=== PATIENT | male | born 1990 | race Caucasian/White ===

== ENCOUNTER 2017-03-29 14:51 | Emergency (ER) | payer SELFPAY ==
[~2017-03-29] VITALS: Ht 175.3 cm; Wt 74.4 kg
[2017-03-29 14:55] VITALS: BP 131/83
== END 2017-03-29 16:38 | disposition home or self-care (01) ==
LOC: ED 16:35
DX: S60.221A Contusion of right hand, initial encounter (principal); X58.XXXA Exposure to other specified factors, initial encounter; Y93.89 Activity, other specified; Y92.89 Other specified places as the place of occurrence of the external cause; Y99.8 Other external cause status
CPT/HCPCS: 99284

== ENCOUNTER 2017-04-15 17:01 | Emergency (ER) | payer SELFPAY ==
[~2017-04-15] VITALS: Ht 175.3 cm; Wt 73.4 kg
[2017-04-15 17:11] VITALS: BP 126/86
[2017-04-15] MEDS ORDERED: KETOROLAC 30 MG/1 ML IM ONE (18:00)
[2017-04-15] MEDS ORDERED: KETOROLAC 30 MG/1 ML ONE (18:41)
== END 2017-04-15 19:11 | disposition home or self-care (01) ==
LOC: ED 19:00
DX: M46.1 Sacroiliitis, not elsewhere classified (principal)
CPT/HCPCS: 96372; 99282; J1885

== ENCOUNTER 2017-07-09 18:53 | Emergency (ER) | payer OTHER ==
[~2017-07-09] VITALS: Ht 175.3 cm; Wt 72.7 kg
[2017-07-09 18:55] VITALS: BP 122/80
[2017-07-09] MEDS ORDERED: HYDROcodone/APAP 5/325 TABLET PO STA (19:35)
[2017-07-09] MEDS ORDERED: CYCLOBENZAPRINE 10 MG TABLET PO STA (19:35)
[2017-07-09] MEDS ORDERED: HYDROcodone/APAP 5/325 TABLET ONE (19:39)
[2017-07-09] MEDS ORDERED: CYCLOBENZAPRINE 10 MG TABLET ONE (19:40)
== END 2017-07-09 20:14 | disposition home or self-care (01) ==
LOC: ED 19:33
DX: M54.5 Low back pain (principal)
CPT/HCPCS: 99283

== ENCOUNTER 2017-11-07 11:23 | Emergency (ER) | payer SELFPAY ==
[~2017-11-07] VITALS: Ht 175.3 cm; Wt 74.5 kg
[2017-11-07] MEDS ORDERED: SODIUM CHLORIDE 0.9% 1,000 ML IV ONE (11:57)
[2017-11-07] MEDS ORDERED: SODIUM CHLORIDE 0.9% 1,000ML IVBOLUS ONE (12:00)
[2017-11-07] MEDS ORDERED: SODIUM CHLORIDE FLUSH 10ML SYR IVF ONE (12:00)
[2017-11-07] MEDS ORDERED: ONDANSETRON 2MG/ML, 2ML IVPush ONE (12:00)
[2017-11-07] MEDS ORDERED: ONDANSETRON 2MG/ML, 2ML ONE (12:13)
[2017-11-07 12:28] LABS: RAPID INFLUENZA A Negative (Negative); RAPID INFLUENZA B Negative (Negative)
[2017-11-07 12:40] LABS: HEMATOCRIT 48.1 % (39.2-51.8); HEMOGLOBIN 16.7 g/dL (13.7-18.0); WHITE BLOOD COUNT 11.4 x10^3/uL (3.4-10)
[2017-11-07 12:52] LABS: ASPARTATE AMINO TRANSFERASE 27 U/L (15-37); BLOOD UREA NITROGEN 19 mg/dL (7-18)
[2017-11-07] MEDS ORDERED: IBUPROFEN 200 MG TABLET ONE (14:11)
[2017-11-07] MEDS ORDERED: IBUPROFEN 200 MG TABLET PO ONE (14:30)
[2017-11-07 14:52] VITALS: BP 122/77
== END 2017-11-07 14:54 | disposition home or self-care (01) ==
LOC: ED 14:40
DX: K52.89 Other specified noninfective gastroenteritis and colitis (principal); E86.0 Dehydration
CPT/HCPCS: 36415; 74022; 80053; 81003; 83690; 85025; 87400; 96361; 96374; 99285; J2405; J7030

== ENCOUNTER 2017-11-09 09:13 | Emergency (ER) | payer SELFPAY ==
[~2017-11-09] VITALS: Ht 175.3 cm; Wt 78.2 kg
[2017-11-09 09:21] VITALS: BP 126/67
[2017-11-09] MEDS ORDERED: KETOROLAC 30 MG/1 ML IM ONE (11:00)
[2017-11-09] MEDS ORDERED: METHOCARBAMOL 750 MG TABLET PO ONE (11:00)
[2017-11-09] MEDS ORDERED: KETOROLAC 30 MG/1 ML ONE (11:08)
[2017-11-09] MEDS ORDERED: METHOCARBAMOL 750 MG TABLET ONE (11:08)
== END 2017-11-09 12:37 ==
LOC: ED 10:15
DX: S39.012A Strain of muscle, fascia and tendon of lower back, initial encounter (principal); S29.012A Strain of muscle and tendon of back wall of thorax, initial encounter; X58.XXXA Exposure to other specified factors, initial encounter; Y93.89 Activity, other specified; Y92.89 Other specified places as the place of occurrence of the external cause; Y99.8 Other external cause status
CPT/HCPCS: 72110; 96372; 99284; J1885

== ENCOUNTER 2018-01-28 19:00 | Emergency (ER) | payer SELFPAY ==
[~2018-01-28] VITALS: Ht 175.3 cm; Wt 78.0 kg
[2018-01-28 19:08] VITALS: BP 125/76
== END 2018-01-28 19:57 | disposition home or self-care (01) ==
LOC: ED 19:40
DX: B00.2 Herpesviral gingivostomatitis and pharyngotonsillitis (principal); F17.200 Nicotine dependence, unspecified, uncomplicated
CPT/HCPCS: 99281

== ENCOUNTER 2018-06-15 20:20 | Emergency (ER) | payer SELFPAY ==
[~2018-06-15] VITALS: Ht 175.3 cm; Wt 166.2 kg
[2018-06-15 20:30] VITALS: BP 149/80
[2018-06-15 21:03] LABS: MICROSCOPIC NOT IND
== END 2018-06-15 21:27 | disposition home or self-care (01) ==
LOC: ED 21:05
DX: Z20.2 Contact with and (suspected) exposure to infections with a predominantly sexual mode of transmission (principal)
CPT/HCPCS: 81003; 87491; 87591; 99284

== ENCOUNTER 2018-08-31 13:18 | Emergency (ER) | payer SELFPAY ==
[~2018-08-31] VITALS: Ht 175.3 cm; Wt 77.2 kg
[2018-08-31] MEDS ORDERED: CEFTRIAXONE 250 MG ONE (13:48)
[2018-08-31] MEDS ORDERED: AZITHROMYCIN 500 MG TABLET ONE (13:48)
[2018-08-31] MEDS ORDERED: AZITHROMYCIN 500 MG TABLET PO ONE (14:00)
[2018-08-31] MEDS ORDERED: CEFTRIAXONE 250 MG IM ONE (14:00)
[2018-08-31 14:50] LABS: CULTURE INDICATED? YES; MICROSCOPIC INDICATED
[2018-08-31 15:04] VITALS: BP 128/62
== END 2018-08-31 15:13 | disposition home or self-care (01) ==
LOC: ED 15:00
DX: A56.01 Chlamydial cystitis and urethritis (principal); A54.9 Gonococcal infection, unspecified
CPT/HCPCS: 81001; 87086; 87491; 87591; 96372; 99284; J0696

== ENCOUNTER 2018-09-28 11:40 | Emergency (ER) | payer OTHER ==
[~2018-09-28] VITALS: Ht 175.3 cm; Wt 75.2 kg
[2018-09-28 11:52] VITALS: BP 164/78
[2018-09-28] MEDS ORDERED: AZITHROMYCIN 250 MG TABLET ONE (12:13)
[2018-09-28] MEDS ORDERED: CEFTRIAXONE 1,000 MG ONE (12:13)
[2018-09-28] MEDS ORDERED: CEFTRIAXONE 250 MG IM ONE (12:30)
[2018-09-28] MEDS ORDERED: AZITHROMYCIN 500 MG TABLET PO ONE (12:30)
== END 2018-09-28 12:32 | disposition home or self-care (01) ==
LOC: ED 12:00
DX: N30.00 Acute cystitis without hematuria (principal); F17.200 Nicotine dependence, unspecified, uncomplicated
CPT/HCPCS: 87491; 87591; 96372; 99284; J0696

== ENCOUNTER 2019-02-02 04:18 | Emergency (ER) | payer SELFPAY ==
[~2019-02-02] VITALS: Ht 172.7 cm; Wt 78.9 kg
[2019-02-02 04:21] VITALS: BP 144/92
[2019-02-02] MEDS ORDERED: KETOROLAC 30 MG/1 ML ONE (04:43)
[2019-02-02] MEDS ORDERED: KETOROLAC 30 MG/1 ML IM ONE (05:00)
== END 2019-02-02 05:10 | disposition home or self-care (01) ==
LOC: ED 04:40
DX: K02.9 Dental caries, unspecified (principal)
CPT/HCPCS: 96372; 99283; J1885

== ENCOUNTER 2019-02-15 15:38 | Emergency (ER) | payer OTHER ==
[~2019-02-15] VITALS: Ht 175.3 cm; Wt 77.4 kg
[2019-02-15] MEDS ORDERED: HYDROcodone/APAP 5/325 TABLET PO ONE (16:30)
[2019-02-15] MEDS ORDERED: HYDROcodone/APAP 5/325 TABLET ONE (16:31)
[2019-02-15 16:59] VITALS: BP 134/85
--- NOTE | 2019-02-15 17:01 | NUR ---
D/C INSTRUCTIONS, MEDS, & F/U APPT RV'WD WITH PT, HE VERBALIZES UNDERSTANDING. RX GIVEN X2. AMBULATED OUT OF ED WITH GIRLFRIEND WITHOUT DIFFICULTY.
== END 2019-02-15 17:04 | disposition home or self-care (01) ==
LOC: ED 16:58
DX: K02.9 Dental caries, unspecified (principal); F17.210 Nicotine dependence, cigarettes, uncomplicated
CPT/HCPCS: 99283

== ENCOUNTER 2019-07-05 19:31 | Emergency (ER) | payer SELFPAY ==
[~2019-07-05] VITALS: Ht 175.3 cm; Wt 77.0 kg
[2019-07-05 19:34] VITALS: BP 133/82
== END 2019-07-05 20:21 | disposition home or self-care (01) ==
LOC: ED 20:15
DX: K08.89 Other specified disorders of teeth and supporting structures (principal)
CPT/HCPCS: 99283